=== PATIENT | female | born 1940 | race Two or more races ===

== ENCOUNTER 2023-04-15 11:36 | Inpatient (IN) | payer MEDICARE ==
[~2023-04-15] VITALS: Ht 157.5 cm; Wt 78.0 kg
[2023-04-15] VITALS (20 sets, daily range): BP systolic 44–158; BP diastolic 35–93; TEMP 98.3–98.7; O2SAT 94–100
[2023-04-15] MEDS ORDERED: CLON0.5T4 PO (12:11)
[2023-04-15] MEDS ORDERED: LIDO120C7 TP (12:11)
[2023-04-15] MEDS ORDERED: LEVO125T8 PO (12:11)
[2023-04-15 12:56] LABS: BASOPHILS % (AUTO) 0.4 % (0.0-2.0); EOSINOPHILS # (AUTO) 0.3 K/uL (0.0-0.7); EOSINOPHILS % (AUTO) 2.3 % (0.0-6.0); HEMATOCRIT 34 % (33-45); HEMOGLOBIN 11.1 g/dL (11.5-14.8); LYMPHOCYTES # (AUTO) 5.6 K/uL (0.8-4.8); LYMPHOCYTES % (AUTO) 43.5 % (20.0-44.0); MEAN CORPUSCULAR HEMOGLOBIN 30 PG (26.0-33.0); MEAN CORPUSCULAR HGB CONC 32 g/dl (31.0-36.0); MEAN CORPUSCULAR VOLUME 91 fL (82-100); MONOCYTES # (AUTO) 0.7 K/uL (0.1-1.30); MONOCYTES % (AUTO) 5.5 % (2.0-12.0); NEUTROPHILS # (AUTO) 6.3 K/uL (1.8-8.9); NEUTROPHILS % (AUTO) 48.3 % (43.0-81.0); PLATELET COUNT (AUTO) 223 K/uL (150-450); RED BLOOD CELL COUNT(AUTO) 3.75 MIL/uL (4.0-5.2); RED CELL DISTRIBUTION WIDTH 15.7 % (11.5-15.0); WHITE BLOOD COUNT (AUTO) 12.9 K/uL (4.3-11.0)
[2023-04-15 13:03] LABS: CALCIUM, SERUM 8.6 mg/dL (8.5-10.1); CARBON DIOXIDE 19 mmol/L (21-32); CHLORIDE 108 mmol/L (98-107); CREATININE 6.7 mg/dL (0.6-1.3); GLUCOSE 83 mg/dL (74-106); SODIUM SERUM 138 mmol/L (136-145); UREA NITROGEN, BLOOD 54 mg/dL (7-18)
[2023-04-15 13:08] LABS: POTASSIUM 8.4 mmol/L (3.5-5.1)
[2023-04-15 13:17] LABS: INR 0.99 (0.91-1.10); PARTIAL THROMBOPLASTIN TIME 24.2 SEC (24.3-34.3); PROTHROMBIN TIME 10.5 SECS (9.2-11.1)
[2023-04-15] MEDS ORDERED: ALBUTEROL FS 2.5 MG/3 ML VIAL.NEB ONE (13:25)
[2023-04-15] MEDS ORDERED: SODIUM BICARBONATE SYR 50 MEQ/50 ML DISP.SYRIN IV ONE (13:30)
[2023-04-15] MEDS ORDERED: ALBUTEROL FS 2.5 MG/3 ML VIAL.NEB NEB ONE (13:30)
[2023-04-15] MEDS ORDERED: SODIUM POLYSTYRENE SULFONATE 15 G/60 ML BOTTLE PO ONE (13:30)
[2023-04-15] MEDS ORDERED: INSULIN REGULAR, HUMAN 100 UNIT/ML 10 ML VIAL IV ONE (13:30)
[2023-04-15] MEDS ORDERED: CALCIUM CHLORIDE 1,000 MG/10 ML DISP.SYRIN IV ONE (13:30)
[2023-04-15] MEDS ORDERED: DEXTROSE 50%-WATER 50 ML DISP.SYRIN IV ONE (13:30)
[2023-04-15] MEDS ORDERED: CALCIUM CHLORIDE 1,000 MG/10 ML DISP.SYRIN ONE (13:40)
[2023-04-15] MEDS ORDERED: SODIUM POLYSTYRENE SULFONATE 15 G/60 ML BOTTLE ONE (13:41)
[2023-04-15] MEDS ORDERED: INSULIN REGULAR, HUMAN 100 UNIT/ML 10 ML VIAL ONE (13:42)
[2023-04-15] MEDS ORDERED: DEXTROSE 50%-WATER 50 ML DISP.SYRIN ONE (13:42)
[2023-04-15] MEDS ORDERED: SODIUM BICARBONATE SYR 50 MEQ/50 ML DISP.SYRIN ONE (13:42)
[2023-04-15] MEDS ORDERED: ONDANSETRON HCL/PF 4 MG/2 ML VIAL IVP PRN (14:00)
[2023-04-15] MEDS ORDERED: HEPARIN SODIUM, PORCINE 5000 UNITS/1 ML VIAL IV ONE (14:00)
[2023-04-15] MEDS ORDERED: MAG HYDROX/AL HYDROX/SIMETH 30 ML UDC PO PRN (14:00)
[2023-04-15] MEDS ORDERED: ZOLPIDEM TARTRATE 5 MG TABLET PO PRN (14:00)
[2023-04-15] MEDS ORDERED: Z GUARD REMEDY 4 OZ OINT TP PRN (14:00)
[2023-04-15] MEDS ORDERED: MAGNESIUM HYDROXIDE 30 ML UDC PO PRN (14:00)
[2023-04-15 15:55] LABS: CALCIUM, SERUM 9.7 mg/dL (8.5-10.1); CARBON DIOXIDE 20 mmol/L (21-32); CHLORIDE 108 mmol/L (98-107); CREATININE 6.4 mg/dL (0.6-1.3); GLUCOSE 246 mg/dL (74-106); SODIUM SERUM 137 mmol/L (136-145); UREA NITROGEN, BLOOD 52 mg/dL (7-18)
[2023-04-15 15:58] LABS: POTASSIUM 6.2 mmol/L (3.5-5.1)
[2023-04-16] VITALS (15 sets, daily range): BP systolic 108–136; BP diastolic 46–69; TEMP 98–99; O2SAT 92–98
[2023-04-16] MEDS: ACETAMINOPHEN 325 MG TABLET PO PRN (02:18)
[2023-04-16 04:18] LABS: BASOPHILS # (AUTO) 0.1 K/uL (0.0-0.2); BASOPHILS % (AUTO) 0.5 % (0.0-2.0); EOSINOPHILS # (AUTO) 0.2 K/uL (0.0-0.7); EOSINOPHILS % (AUTO) 1.2 % (0.0-6.0); HEMATOCRIT 33 % (33-45); HEMOGLOBIN 10.9 g/dL (11.5-14.8); LYMPHOCYTES # (AUTO) 4.8 K/uL (0.8-4.8); LYMPHOCYTES % (AUTO) 34.7 % (20.0-44.0); MEAN CORPUSCULAR HEMOGLOBIN 30 PG (26.0-33.0); MEAN CORPUSCULAR HGB CONC 33 g/dl (31.0-36.0); MEAN CORPUSCULAR VOLUME 91 fL (82-100); MONOCYTES # (AUTO) 0.8 K/uL (0.1-1.30); MONOCYTES % (AUTO) 5.6 % (2.0-12.0); NEUTROPHILS # (AUTO) 8.1 K/uL (1.8-8.9); PLATELET COUNT (AUTO) 182 K/uL (150-450); RED BLOOD CELL COUNT(AUTO) 3.58 MIL/uL (4.0-5.2); RED CELL DISTRIBUTION WIDTH 15.4 % (11.5-15.0); WHITE BLOOD COUNT (AUTO) 13.9 K/uL (4.3-11.0)
[2023-04-16 04:29] LABS: CALCIUM, SERUM 8.6 mg/dL (8.5-10.1); CARBON DIOXIDE 24 mmol/L (21-32); CHLORIDE 100 mmol/L (98-107); CREATININE 3.7 mg/dL (0.6-1.3); GLUCOSE 106 mg/dL (74-106); MAGNESIUM 1.8 mg/dL (1.8-2.4); PHOSPHORUS 4.3 mg/dL (2.5-4.9); POTASSIUM 5.6 mmol/L (3.5-5.1); SODIUM SERUM 132 mmol/L (136-145); UREA NITROGEN, BLOOD 20 mg/dL (7-18)
[2023-04-16] MEDS: LEVOTHYROXINE SODIUM 125 MCG TABLET PO SCH (07:37)
[2023-04-17] VITALS: BP 133/63; TEMP 98.6; O2SAT 93
[2023-04-17 04:00] VITALS: BP 113/54; TEMP 98.5; O2SAT 99
[2023-04-17 07:00] LABS: BASOPHILS # (AUTO) 0.1 K/uL (0.0-0.2); BASOPHILS % (AUTO) 0.9 % (0.0-2.0); EOSINOPHILS # (AUTO) 0.3 K/uL (0.0-0.7); EOSINOPHILS % (AUTO) 2.6 % (0.0-6.0); HEMATOCRIT 33 % (33-45); HEMOGLOBIN 11.2 g/dL (11.5-14.8); LYMPHOCYTES # (AUTO) 4.2 K/uL (0.8-4.8); LYMPHOCYTES % (AUTO) 38.3 % (20.0-44.0); MEAN CORPUSCULAR HEMOGLOBIN 31 PG (26.0-33.0); MEAN CORPUSCULAR HGB CONC 34 g/dl (31.0-36.0); MEAN CORPUSCULAR VOLUME 90 fL (82-100); MONOCYTES # (AUTO) 0.8 K/uL (0.1-1.30); MONOCYTES % (AUTO) 6.9 % (2.0-12.0); NEUTROPHILS # (AUTO) 5.6 K/uL (1.8-8.9); NEUTROPHILS % (AUTO) 51.3 % (43.0-81.0); PLATELET COUNT (AUTO) 160 K/uL (150-450); RED BLOOD CELL COUNT(AUTO) 3.65 MIL/uL (4.0-5.2); RED CELL DISTRIBUTION WIDTH 15.3 % (11.5-15.0)
[2023-04-17] MEDS: LEVOTHYROXINE SODIUM 125 MCG TABLET PO SCH (07:30)
[2023-04-17 07:33] LABS: CALCIUM, SERUM 8.3 mg/dL (8.5-10.1); CARBON DIOXIDE 25 mmol/L (21-32); CHLORIDE 103 mmol/L (98-107); CREATININE 4.9 mg/dL (0.6-1.3); GLUCOSE 107 mg/dL (74-106); MAGNESIUM 2.2 mg/dL (1.8-2.4); PHOSPHORUS 5.9 mg/dL (2.5-4.9); POTASSIUM 5.3 mmol/L (3.5-5.1); SODIUM SERUM 139 mmol/L (136-145); UREA NITROGEN, BLOOD 26 mg/dL (7-18)
[2023-04-17 08:00] VITALS: BP 128/41; TEMP 98.4; O2SAT 97
[2023-04-17] MEDS ORDERED: IOHEXOL 50 ML IV ONE (10:16)
[2023-04-17] MEDS ORDERED: HEPARIN SODIUM, PORCINE 1,000 UNIT/ML VIAL ONE (10:16)
[2023-04-17] MEDS ORDERED: LIDOCAINE HCL/MPF 1% 30 ML VIAL IJ ONE ×2 (10:16→12:31)
[2023-04-17] MEDS ORDERED: CELLULOSE,OXIDIZED 1 EACH EACH MC ONE (10:16)
[2023-04-17] MEDS ORDERED: CELLULOSE,OXIDIZED 1 EA PACK MC ONE (10:16)
[2023-04-17 12:00] VITALS: BP 112/62; TEMP 98.4; O2SAT 94
[2023-04-17] MEDS ORDERED: KETAMINE HCL(200MG/20ML) 10 MG/ML VIAL ONE (12:39)
[2023-04-17] MEDS ORDERED: FENTANYL PF 100MCG/2ML AMPUL ONE (12:39)
[2023-04-17] MEDS ORDERED: HEPARIN SODIUM, PORCINE 5000 UNITS/1 ML VIAL ONE (13:10)
[2023-04-17] MEDS ORDERED: LABETALOL HCL IV 100MG VIAL ONE (13:13)
[2023-04-17 16:00] VITALS: BP 141/57; TEMP 97.7; O2SAT 96
[2023-04-17 20:00] VITALS: BP 142/84; TEMP 98.8; O2SAT 96
[2023-04-17] MEDS: ANCEF 1 GM/50 ML D5W IV SCH ×2 (20:54)
[2023-04-18] VITALS: BP 112/65; TEMP 98.2; O2SAT 96
[2023-04-18] MEDS: ACETAMINOPHEN 325 MG TABLET PO PRN ×2 (03:11→15:42)
[2023-04-18 04:00] VITALS: BP 103/90; TEMP 98; O2SAT 98
[2023-04-18] MEDS: ANCEF 1 GM/50 ML D5W IV SCH ×2 (04:46)
[2023-04-18 06:41] LABS: BASOPHILS % (AUTO) 0.4 % (0.0-2.0); EOSINOPHILS # (AUTO) 0.3 K/uL (0.0-0.7); HEMATOCRIT 30 % (33-45); HEMOGLOBIN 10.1 g/dL (11.5-14.8); LYMPHOCYTES # (AUTO) 4.6 K/uL (0.8-4.8); LYMPHOCYTES % (AUTO) 35.4 % (20.0-44.0); MEAN CORPUSCULAR HEMOGLOBIN 30 PG (26.0-33.0); MEAN CORPUSCULAR HGB CONC 33 g/dl (31.0-36.0); MEAN CORPUSCULAR VOLUME 91 fL (82-100); MONOCYTES # (AUTO) 0.9 K/uL (0.1-1.30); MONOCYTES % (AUTO) 6.5 % (2.0-12.0); NEUTROPHILS # (AUTO) 7.3 K/uL (1.8-8.9); NEUTROPHILS % (AUTO) 55.7 % (43.0-81.0); PLATELET COUNT (AUTO) 155 K/uL (150-450); RED BLOOD CELL COUNT(AUTO) 3.32 MIL/uL (4.0-5.2); RED CELL DISTRIBUTION WIDTH 15.7 % (11.5-15.0)
[2023-04-18 07:33] LABS: CALCIUM, SERUM 7.6 mg/dL (8.5-10.1); CARBON DIOXIDE 22 mmol/L (21-32); CHLORIDE 101 mmol/L (98-107); CREATININE 6.5 mg/dL (0.6-1.3); GLUCOSE 205 mg/dL (74-106); PHOSPHORUS 6.8 mg/dL (2.5-4.9); POTASSIUM 5.5 mmol/L (3.5-5.1); SODIUM SERUM 137 mmol/L (136-145); UREA NITROGEN, BLOOD 37 mg/dL (7-18)
[2023-04-18] MEDS: LEVOTHYROXINE SODIUM 125 MCG TABLET PO SCH (07:59)
[2023-04-18 08:00] VITALS: BP 136/58; TEMP 98.4; O2SAT 95
[2023-04-18 12:00] VITALS: BP 138/52; TEMP 98.4; O2SAT 97
[2023-04-18 16:00] VITALS: BP 128/54; TEMP 98.4; O2SAT 96
[2023-04-18 20:00] VITALS: BP 125/46; TEMP 98.3; O2SAT 96
[2023-04-19] VITALS: BP 130/35; TEMP 98.3; O2SAT 99
[2023-04-19 04:00] VITALS: BP 118/52; TEMP 98.2; O2SAT 99
[2023-04-19 08:00] VITALS: BP 136/53; TEMP 98.1; O2SAT 98
[2023-04-19] MEDS: LEVOTHYROXINE SODIUM 125 MCG TABLET PO SCH (08:06)
[2023-04-19 11:33] LABS: BASOPHILS # (AUTO) 0.1 K/uL (0.0-0.2); BASOPHILS % (AUTO) 0.5 % (0.0-2.0); EOSINOPHILS # (AUTO) 0.4 K/uL (0.0-0.7); EOSINOPHILS % (AUTO) 3.6 % (0.0-6.0); HEMATOCRIT 30 % (33-45); HEMOGLOBIN 10.1 g/dL (11.5-14.8); LYMPHOCYTES # (AUTO) 4.4 K/uL (0.8-4.8); LYMPHOCYTES % (AUTO) 38.2 % (20.0-44.0); MEAN CORPUSCULAR HEMOGLOBIN 31 PG (26.0-33.0); MEAN CORPUSCULAR HGB CONC 33 g/dl (31.0-36.0); MEAN CORPUSCULAR VOLUME 92 fL (82-100); MONOCYTES # (AUTO) 0.6 K/uL (0.1-1.30); MONOCYTES % (AUTO) 5.5 % (2.0-12.0); NEUTROPHILS % (AUTO) 52.2 % (43.0-81.0); PLATELET COUNT (AUTO) 134 K/uL (150-450); RED CELL DISTRIBUTION WIDTH 15.7 % (11.5-15.0); WHITE BLOOD COUNT (AUTO) 11.4 K/uL (4.3-11.0)
[2023-04-19 11:36] LABS: CALCIUM, SERUM 7.8 mg/dL (8.5-10.1); CARBON DIOXIDE 20 mmol/L (21-32); CHLORIDE 105 mmol/L (98-107); CREATININE 6.6 mg/dL (0.6-1.3); GLUCOSE 154 mg/dL (74-106); POTASSIUM 4.7 mmol/L (3.5-5.1); SODIUM SERUM 137 mmol/L (136-145); UREA NITROGEN, BLOOD 45 mg/dL (7-18)
[2023-04-19 11:41] LABS: ALANINE AMINOTRANSFERASE < 6 U/L (12-78); ALBUMIN 3.1 g/dL (3.4-5.0); ALKALINE PHOSPHATASE 118 U/L (46-116); ASPARTATE AMINOTRANSFERASE 11 U/L (15-37); BILIRUBIN,TOTAL 0.3 mg/dL (0.2-1.0); TOTAL PROTEIN, SERUM 6.7 g/dL (6.4-8.2)
[2023-04-19 12:00] VITALS: BP 126/53; TEMP 98.1; O2SAT 98
[2023-04-19] MEDS ORDERED: METOCLOPRAMIDE HCL 10 MG/2 ML VIAL IV SCH (12:00)
[2023-04-19] MEDS ORDERED: LIDOCAINE HCL/MPF 1% 30 ML VIAL IJ ONE (14:30)
[2023-04-19] MEDS ORDERED: IODIXANOL 150 ML IV ONE (14:30)
[2023-04-19 16:15] VITALS: BP 138/52; TEMP 98.1; O2SAT 96
[2023-04-19] MEDS ORDERED: CLOPIDOGREL BISULFATE 300 MG TABLET PO ONE (17:00)
[2023-04-19] MEDS: ASPIRIN EC 81 MG TABLET.DR PO SCH (17:18)
[2023-04-19 20:00] VITALS: BP 130/53; TEMP 97.9; O2SAT 95
[2023-04-20] VITALS: BP 121/53; TEMP 97.9; O2SAT 97
[2023-04-20 06:00] VITALS: BP 122/50; TEMP 98.2; O2SAT 96
[2023-04-20 08:00] VITALS: BP 132/55; TEMP 97.9; O2SAT 96
[2023-04-20] MEDS: ASPIRIN EC 81 MG TABLET.DR PO SCH (08:40)
[2023-04-20] MEDS: LEVOTHYROXINE SODIUM 125 MCG TABLET PO SCH (08:41)
[2023-04-20] MEDS ORDERED: ASPI-1420 PO (08:58)
[2023-04-20] MEDS ORDERED: CLOP75TA15 PO (08:58)
[2023-04-20] MEDS ORDERED: CLOPIDOGREL BISULFATE 75 MG TABLET PO SCH (09:00)
[2023-04-20 12:00] VITALS: BP 129/51; TEMP 98; O2SAT 98
[2023-04-20] MEDS ORDERED: POLYETHYLENE GLYCOL 3350 17 GM POWD.PACK PO ONE (13:00)
[2023-04-20] MEDS ORDERED: DOCUSATE SODIUM 100 MG CAPSULE PO ONE (13:00)
[2023-04-20] MEDS ORDERED: LACTULOSE 10 G/15 ML UDC (PYXIS) PO ONE (13:00)
[2023-04-20 16:00] VITALS: BP 124/54; TEMP 97.9; O2SAT 99
[2023-04-20] MEDS ORDERED: ONDANSETRON HCL 4 MG/5 ML SOLUTION PO ONE (18:30)
[2023-04-20] MEDS ORDERED: ONDANSETRON HCL/PF 4 MG/2 ML VIAL IV PRN (19:00)
[2023-04-20 20:00] VITALS: BP 120/59; TEMP 97.8; O2SAT 99
== END 2023-04-20 21:06 | disposition home health service (06) | DRG 252 ==
LOC: ER 11:36 → ICU 14:49 → TELE-TD 04-16 11:40 → ICU 04-17 13:29 → TELE1 04-17 13:30 → MEDSG1 04-20 09:39
PROVIDERS: ADMIT Nurse Practitioner Acute Care; ATTEND Internal Medicine
PROC: 5A1D70Z Performance of Urinary Filtration, Intermittent, Less than 6 Hours Per Day (ICD-10-PCS; principal; 2023-04-15)
PROC: 06HY33Z Insertion of Infusion Device into Lower Vein, Percutaneous Approach (ICD-10-PCS; 2023-04-15)
PROC: 03CY0ZZ Extirpation of Matter from Upper Artery, Open Approach (ICD-10-PCS; 2023-04-17)
PROC: 05783ZZ Dilation of Left Axillary Vein, Percutaneous Approach (ICD-10-PCS; 2023-04-17)
PROC: B51WYZZ Fluoroscopy of Dialysis Shunt/Fistula using Other Contrast (ICD-10-PCS; 2023-04-17)
PROC: 05WY0JZ Revision of Synthetic Substitute in Upper Vein, Open Approach (ICD-10-PCS; 2023-04-17)
PROC: 057Y3ZZ Dilation of Upper Vein, Percutaneous Approach (ICD-10-PCS; 2023-04-17)
PROC: 05783DZ Dilation of Left Axillary Vein with Intraluminal Device, Percutaneous Approach (ICD-10-PCS; 2023-04-19)
PROC: 05WY3JZ Revision of Synthetic Substitute in Upper Vein, Percutaneous Approach (ICD-10-PCS; 2023-04-19)
PROC: B51WYZZ Fluoroscopy of Dialysis Shunt/Fistula using Other Contrast (ICD-10-PCS; 2023-04-19)
DX: T82.868A Thrombosis due to vascular prosthetic devices, implants and grafts, initial encounter (principal); N18.6 End stage renal disease; I12.0 Hypertensive chronic kidney disease with stage 5 chronic kidney disease or end stage renal disease; E87.20 Acidosis, unspecified; E87.5 Hyperkalemia; E11.22 Type 2 diabetes mellitus with diabetic chronic kidney disease; Y83.8 Other surgical procedures as the cause of abnormal reaction of the patient, or of later complication, without mention of misadventure at the time of the procedure; D63.1 Anemia in chronic kidney disease; D72.829 Elevated white blood cell count, unspecified; E03.9 Hypothyroidism, unspecified; Z79.82 Long term (current) use of aspirin; Y92.009 Unspecified place in unspecified non-institutional (private) residence as the place of occurrence of the external cause; M89.8X9 Other specified disorders of bone, unspecified site; Z99.2 Dependence on renal dialysis
CPT/HCPCS: 36415; 71045-TC; 73060-TC; 80048-TC; 80053-TC; 82962-TC; 83735-TC; 84100-TC; 84132-TC; 85025-TC; 85730-TC; 86850-TC; 90935-TC; 92526; 92611-TC; 94799-TC; A6209; C1725; C1757; C1769; C1874; C1887; G0378; J0690; J1100; J1644; J1815; J2405; J2704; J3010; J3490; J7030; J7050; J7060; Q0162; Q9967

== ENCOUNTER 2024-08-12 08:52 | Day surgery (SDC) | payer MEDICARE, BC ==
[~2024-08-12 08:52] MED LIST: ASPI-1420 PO; CLON0.5T4 PO; CLOP75TA15 PO; LEVO125T8 PO; LIDO120C7 TP
[2024-08-12] MEDS ORDERED: CELLULOSE,OXIDIZED 1 EA PACK MC ONE (09:01)
[2024-08-12] MEDS ORDERED: HEMOSTATIC MATRIX 8 ML 1 EACH PAD MC ONE (09:01)
[2024-08-12] MEDS ORDERED: ANESTHESIA TRAY IN PYXIS 1 EA TRAY MC ONE (09:01)
[2024-08-12] MEDS ORDERED: LIDOCAINE HCL/MPF 1% 30 ML VIAL IJ ONE (09:02)
[2024-08-12] MEDS ORDERED: CELLULOSE,OXIDIZED 1 EACH EACH MC ONE (09:02)
[2024-08-12] MEDS ORDERED: ROPIVACAINE HCL 0.5% 5 MG/ML 30ML VIAL ONE (09:02)
[2024-08-12] MEDS ORDERED: CELLULOSE,OXIDIZED 1 PKT EACH MC ONE (09:02)
[2024-08-12 09:37] LABS: BASOPHILS % (AUTO) 0.3 % (0.0-2.0); EOSINOPHILS # (AUTO) 0.3 K/uL (0.0-0.7); EOSINOPHILS % (AUTO) 2.2 % (0.0-6.0); HEMATOCRIT 32 % (33-45); HEMOGLOBIN 10.6 g/dL (11.5-14.8); LYMPHOCYTES # (AUTO) 5.2 K/uL (0.8-4.8); MEAN CORPUSCULAR HEMOGLOBIN 30 PG (26.0-33.0); MEAN CORPUSCULAR HGB CONC 33 g/dl (31.0-36.0); MEAN CORPUSCULAR VOLUME 91 fL (82-100); MONOCYTES # (AUTO) 0.7 K/uL (0.1-1.30); MONOCYTES % (AUTO) 5.9 % (2.0-12.0); NEUTROPHILS # (AUTO) 6.5 K/uL (1.8-8.9); NEUTROPHILS % (AUTO) 50.6 % (43.0-81.0); PLATELET COUNT (AUTO) 165 K/uL (150-450); RED BLOOD CELL COUNT(AUTO) 3.54 MIL/uL (4.0-5.2); RED CELL DISTRIBUTION WIDTH 16.1 % (11.5-15.0); WHITE BLOOD COUNT (AUTO) 12.8 K/uL (4.3-11.0)
[2024-08-12 09:43] LABS: CALCIUM, SERUM 8.4 mg/dL (8.5-10.1); POTASSIUM 5.2 mmol/L (3.5-5.1)
[2024-08-12 09:49] LABS: ALBUMIN 3.7 g/dL (3.4-5.0); BILIRUBIN,TOTAL 0.5 mg/dL (0.2-1.0); TOTAL PROTEIN, SERUM 7.1 g/dL (6.4-8.2)
[2024-08-12 10:04] LABS: INR 0.98 (0.91-1.10); PROTHROMBIN TIME 10.4 SECS (9.2-11.1)
[2024-08-12 10:06] LABS: PARTIAL THROMBOPLASTIN TIME 121.1 SEC (24.3-34.3)
[2024-08-12] MEDS ORDERED: FENTANYL PF 100MCG/2ML AMPUL ONE (10:07)
[2024-08-12] MEDS ORDERED: BUPIVACAINE 0.25% 75 MG/30 ML VIAL ONE (10:08)
[2024-08-12] MEDS ORDERED: LIDOCAINE 2% 50 ML MDV IJ ONE (10:08)
[2024-08-12] MEDS ORDERED: MIDAZOLAM HCL 2 MG/2ML VIAL ONE (10:08)
[2024-08-12] MEDS ORDERED: FAMOTIDINE/PF INJ 20 MG/2 ML VIAL IV ONE (10:09)
== END 2024-08-12 11:50 | disposition home or self-care (01) ==
LOC: DS 08:52
PROVIDERS: ATTEND Surgery Vascular Surgery
DX: I12.0 Hypertensive chronic kidney disease with stage 5 chronic kidney disease or end stage renal disease (principal); Z53.8 Procedure and treatment not carried out for other reasons; N18.6 End stage renal disease; E11.22 Type 2 diabetes mellitus with diabetic chronic kidney disease; E03.9 Hypothyroidism, unspecified; Z79.02 Long term (current) use of antithrombotics/antiplatelets; Z79.82 Long term (current) use of aspirin; Z79.890 Hormone replacement therapy; Z99.2 Dependence on renal dialysis; Z79.899 Other long term (current) drug therapy; Z98.890 Other specified postprocedural states; Z86.2 Personal history of diseases of the blood and blood-forming organs and certain disorders involving the immune mechanism
CPT/HCPCS: 71045; 85025; 85610; 85730; 36415; 80053; J3490 ×3; J1308; J1644; J2250; J2795; J3010

== ENCOUNTER 2024-08-14 13:07 | Inpatient (IN) | payer MEDICARE, BC ==
[~2024-08-14] VITALS: Ht 160 cm; Wt 76.4 kg
[2024-08-14 13:36] LABS: BASOPHILS # (AUTO) 0.2 K/uL (0.0-0.2); BASOPHILS % (AUTO) 0.8 % (0.0-2.0); EOSINOPHILS # (AUTO) 0.3 K/uL (0.0-0.7); EOSINOPHILS % (AUTO) 1.7 % (0.0-6.0); HEMATOCRIT 30 % (33-45); HEMOGLOBIN 9.8 g/dL (11.5-14.8); LYMPHOCYTES # (AUTO) 8.9 K/uL (0.8-4.8); LYMPHOCYTES % (AUTO) 47.1 % (20.0-44.0); MEAN CORPUSCULAR HEMOGLOBIN 31 PG (26.0-33.0); MEAN CORPUSCULAR HGB CONC 33 g/dl (31.0-36.0); MEAN CORPUSCULAR VOLUME 92 fL (82-100); MONOCYTES # (AUTO) 0.8 K/uL (0.1-1.30); MONOCYTES % (AUTO) 4.3 % (2.0-12.0); NEUTROPHILS # (AUTO) 8.7 K/uL (1.8-8.9); NEUTROPHILS % (AUTO) 46.1 % (43.0-81.0); PLATELET COUNT (AUTO) 183 K/uL (150-450); RED BLOOD CELL COUNT(AUTO) 3.21 MIL/uL (4.0-5.2); RED CELL DISTRIBUTION WIDTH 16.8 % (11.5-15.0); WHITE BLOOD COUNT (AUTO) 18.8 K/uL (4.3-11.0)
[2024-08-14 13:43] LABS: CALCIUM, SERUM 7.9 mg/dL (8.5-10.1); CARBON DIOXIDE 24 mmol/L (21-32); CHLORIDE 108 mmol/L (98-107); GLUCOSE 162 mg/dL (74-106); SODIUM SERUM 141 mmol/L (136-145); UREA NITROGEN, BLOOD 64 mg/dL (7-18)
[2024-08-14 13:49] LABS: CREATININE 7.5 mg/dL (0.6-1.3)
[2024-08-14 13:53] LABS: INR 0.93 (0.91-1.10); PROTHROMBIN TIME 9.6 SECS (9.2-11.1)
[2024-08-14] MEDS: LIDOCAINE 5% (PATCH) 1 EA PATCH TP SCH (14:30)
[2024-08-14] MEDS ORDERED: DEXTROSE 50%-WATER 50 ML DISP.SYRIN ONE (14:31)
[2024-08-14] MEDS ORDERED: CALCIUM CHLORIDE 1,000 MG/10 ML DISP.SYRIN ONE (14:31)
[2024-08-14] MEDS ORDERED: FUROSEMIDE 20 MG/2 ML VIAL ONE (14:31)
[2024-08-14] MEDS ORDERED: INSULIN REGULAR, HUMAN 100 UNIT/ML 10 ML VIAL ONE (14:31)
[2024-08-14] MEDS ORDERED: AMLO10TA4 PO (14:39)
[2024-08-14] MEDS ORDERED: LOSA25TA27 PO (14:39)
[2024-08-14] MEDS: FUROSEMIDE 40 MG/4 ML VIAL IV ONE (14:56)
[2024-08-14] MEDS: DEXTROSE 50%-WATER 50 ML DISP.SYRIN IV ONE (14:57)
[2024-08-14] MEDS: INSULIN REGULAR, HUMAN 100 UNIT/ML 10 ML VIAL IV ONE (14:59)
[2024-08-14] MEDS: CALCIUM CHLORIDE 1,000 MG/10 ML DISP.SYRIN IV ONE (14:59)
[2024-08-14] MEDS ORDERED: ONDANSETRON HCL/PF 4 MG/2 ML VIAL IVP PRN (15:00)
[2024-08-14] MEDS ORDERED: MAGNESIUM HYDROXIDE 30 ML UDC PO PRN (15:00)
[2024-08-14] MEDS ORDERED: MAG HYDROX/AL HYDROX/SIMETH 30 ML UDC PO PRN (15:00)
[2024-08-14] MEDS ORDERED: Z GUARD REMEDY 4 OZ OINT TP PRN (15:00)
[2024-08-14] MEDS ORDERED: LIDOCAINE 5% (PATCH) 1 EA PATCH TP ONE (15:10)
[2024-08-14] MEDS: SODIUM BICARBONATE SYR 50 MEQ/50 ML DISP.SYRIN IV ONE (15:22)
[2024-08-14] MEDS ORDERED: SODIUM POLYSTYRENE SULFONATE 15 G/60 ML BOTTLE PO ONE (15:30)
[2024-08-14] MEDS ORDERED: SODIUM POLYSTYRENE SULFONATE 15 G/60 ML BOTTLE ONE (16:04)
[2024-08-14] MEDS: SODIUM POLYSTYRENE SULFONATE 15 G/60 ML BOTTLE PO ONE ×2 (16:07→16:11)
[2024-08-14 17:28] VITALS: BP 130/55; TEMP 98.2; O2SAT 95
[2024-08-14 17:53] LABS: CALCIUM, SERUM 9.2 mg/dL (8.5-10.1); CREATININE 7.4 mg/dL (0.6-1.3); POTASSIUM 5.9 mmol/L (3.5-5.1)
[2024-08-14] MEDS: ALTEPLASE CATHFLO 2 MG/VIAL XX ONE (18:45)
[2024-08-14 20:00] VITALS: BP 150/60; TEMP 97.9; O2SAT 97
[2024-08-15] VITALS: BP 131/55; TEMP 97.9; O2SAT 97
[2024-08-15 01:33] LABS: CALCIUM, SERUM 7.9 mg/dL (8.5-10.1); CREATININE 6.8 mg/dL (0.6-1.3); POTASSIUM 5.5 mmol/L (3.5-5.1)
[2024-08-15 04:00] VITALS: BP 107/58; TEMP 97.5; O2SAT 96
[2024-08-15] MEDS: SODIUM ZIRCONIUM CYCLOSILICATE 10 GM POWD.PACK ONE (05:33)
[2024-08-15] MEDS: SODIUM ZIRCONIUM CYCLOSILICATE 10 GM POWD.PACK PO SCH (05:34)
[2024-08-15 07:16] LABS: BASOPHILS % (AUTO) 0.3 % (0.0-2.0); EOSINOPHILS # (AUTO) 0.3 K/uL (0.0-0.7); EOSINOPHILS % (AUTO) 2.6 % (0.0-6.0); HEMATOCRIT 28 % (33-45); HEMOGLOBIN 9.2 g/dL (11.5-14.8); LYMPHOCYTES # (AUTO) 5.6 K/uL (0.8-4.8); MEAN CORPUSCULAR HEMOGLOBIN 30 PG (26.0-33.0); MEAN CORPUSCULAR HGB CONC 33 g/dl (31.0-36.0); MEAN CORPUSCULAR VOLUME 92 fL (82-100); MONOCYTES # (AUTO) 0.7 K/uL (0.1-1.30); MONOCYTES % (AUTO) 5.2 % (2.0-12.0); NEUTROPHILS # (AUTO) 6.4 K/uL (1.8-8.9); NEUTROPHILS % (AUTO) 48.9 % (43.0-81.0); PLATELET COUNT (AUTO) 162 K/uL (150-450); RED BLOOD CELL COUNT(AUTO) 3.05 MIL/uL (4.0-5.2)
[2024-08-15 07:35] LABS: CALCIUM, SERUM 7.9 mg/dL (8.5-10.1); MAGNESIUM 1.9 mg/dL (1.8-2.4); PHOSPHORUS 5.1 mg/dL (2.5-4.9)
[2024-08-15 08:00] VITALS: BP 124/50; TEMP 98.1; O2SAT 94
[2024-08-15 08:00] LABS: POTASSIUM 6.1 mmol/L (3.5-5.1)
[2024-08-15] MEDS: LEVOTHYROXINE SODIUM 125 MCG TABLET PO SCH (09:00)
[2024-08-15 12:10] VITALS: BP 142/54; TEMP 97.9; O2SAT 98
[2024-08-15] MEDS ORDERED: ANESTHESIA TRAY IN PYXIS 1 EA TRAY MC ONE (12:23)
[2024-08-15] MEDS ORDERED: LIDOCAINE 1% INJ 50 ML MDV IJ ONE (12:24)
[2024-08-15] MEDS ORDERED: HEPARIN SODIUM, PORCINE 1,000 UNIT/ML VIAL ONE (12:24)
[2024-08-15] MEDS ORDERED: BACITRACIN ZINC OINT (15 GM) 15 GM TUBE TP ONE (13:42)
[2024-08-15] MEDS: SODIUM ZIRCONIUM CYCLOSILICATE 10 GM POWD.PACK PO ONE (14:40)
[2024-08-15 16:10] VITALS: BP 126/55; TEMP 97.7; O2SAT 96
[2024-08-15 20:00] VITALS: BP 108/57; TEMP 98.1; O2SAT 95
[2024-08-15] MEDS: ANCEF 1 GM/50 ML D5W IV SCH (20:26)
[2024-08-16] VITALS: BP 121/51; TEMP 98.1; O2SAT 95
[2024-08-16] MEDS: ACETAMINOPHEN 325 MG TABLET PO PRN (00:14)
[2024-08-16 04:00] VITALS: BP 126/48; TEMP 98.1; O2SAT 97
[2024-08-16 08:05] VITALS: BP 102/55; TEMP 98.2; O2SAT 96
[2024-08-16 08:33] LABS: CALCIUM, SERUM 7.3 mg/dL (8.5-10.1); CREATININE 4.4 mg/dL (0.6-1.3); POTASSIUM 4.4 mmol/L (3.5-5.1)
[2024-08-16 09:39] LABS: BASOPHILS % (AUTO) 0.2 % (0.0-2.0); EOSINOPHILS # (AUTO) 0.3 K/uL (0.0-0.7); EOSINOPHILS % (AUTO) 2.4 % (0.0-6.0); HEMATOCRIT 31 % (33-45); HEMOGLOBIN 10.3 g/dL (11.5-14.8); LYMPHOCYTES # (AUTO) 5.2 K/uL (0.8-4.8); LYMPHOCYTES % (AUTO) 35.8 % (20.0-44.0); MEAN CORPUSCULAR HEMOGLOBIN 31 PG (26.0-33.0); MEAN CORPUSCULAR HGB CONC 34 g/dl (31.0-36.0); MEAN CORPUSCULAR VOLUME 90 fL (82-100); MONOCYTES # (AUTO) 0.7 K/uL (0.1-1.30); MONOCYTES % (AUTO) 4.9 % (2.0-12.0); NEUTROPHILS # (AUTO) 8.2 K/uL (1.8-8.9); NEUTROPHILS % (AUTO) 56.7 % (43.0-81.0); PLATELET COUNT (AUTO) 171 K/uL (150-450); RED BLOOD CELL COUNT(AUTO) 3.38 MIL/uL (4.0-5.2); RED CELL DISTRIBUTION WIDTH 15.5 % (11.5-15.0); WHITE BLOOD COUNT (AUTO) 14.5 K/uL (4.3-11.0)
[2024-08-16 12:09] VITALS: BP 120/51; TEMP 98.4; O2SAT 96
[2024-08-16 16:03] VITALS: BP 133/55; TEMP 98.4; O2SAT 96
[2024-08-16 20:00] VITALS: BP 112/56; TEMP 98.2; O2SAT 95
[2024-08-17] VITALS: BP 109/54; TEMP 98.1; O2SAT 96
[2024-08-17 04:00] VITALS: BP 130/67; TEMP 98.2; O2SAT 96
[2024-08-17 06:59] LABS: BASOPHILS % (AUTO) 0.3 % (0.0-2.0); EOSINOPHILS # (AUTO) 0.3 K/uL (0.0-0.7); EOSINOPHILS % (AUTO) 2.5 % (0.0-6.0); HEMATOCRIT 29 % (33-45); HEMOGLOBIN 9.9 g/dL (11.5-14.8); LYMPHOCYTES # (AUTO) 5.8 K/uL (0.8-4.8); MEAN CORPUSCULAR HEMOGLOBIN 30 PG (26.0-33.0); MEAN CORPUSCULAR HGB CONC 34 g/dl (31.0-36.0); MEAN CORPUSCULAR VOLUME 90 fL (82-100); MONOCYTES # (AUTO) 0.6 K/uL (0.1-1.30); MONOCYTES % (AUTO) 4.8 % (2.0-12.0); NEUTROPHILS # (AUTO) 6.6 K/uL (1.8-8.9); NEUTROPHILS % (AUTO) 49.4 % (43.0-81.0); PLATELET COUNT (AUTO) 156 K/uL (150-450); RED BLOOD CELL COUNT(AUTO) 3.26 MIL/uL (4.0-5.2); RED CELL DISTRIBUTION WIDTH 15.4 % (11.5-15.0); WHITE BLOOD COUNT (AUTO) 13.4 K/uL (4.3-11.0)
[2024-08-17 07:01] LABS: CALCIUM, SERUM 7.2 mg/dL (8.5-10.1); CREATININE 5.6 mg/dL (0.6-1.3); PHOSPHORUS 5.7 mg/dL (2.5-4.9); POTASSIUM 3.8 mmol/L (3.5-5.1)
[2024-08-17 08:00] VITALS: BP 139/59; TEMP 98.1; O2SAT 96
[2024-08-17 12:00] VITALS: BP 148/64; TEMP 98.2; O2SAT 97
[2024-08-17] MEDS ORDERED: ROPIVACAINE HCL 0.5% 5 MG/ML 30ML VIAL ONE (14:18)
[2024-08-17] MEDS ORDERED: LIDOCAINE HCL/MPF 1% 30 ML VIAL IJ ONE (14:18)
[2024-08-17] MEDS ORDERED: CELLULOSE,OXIDIZED 1 EA PACK MC ONE (14:18)
[2024-08-17] MEDS ORDERED: CELLULOSE,OXIDIZED 1 PKT EACH MC ONE (14:19)
[2024-08-17] MEDS ORDERED: CELLULOSE,OXIDIZED 1 EACH EACH MC ONE (14:19)
[2024-08-17 16:00] VITALS: BP 156/67; TEMP 97.5; O2SAT 97
[2024-08-17 20:00] VITALS: BP 155/59; TEMP 98.2; O2SAT 97
[2024-08-18] VITALS: BP 155/63; TEMP 98.6; O2SAT 96
[2024-08-18] MEDS ORDERED: WATER FOR INJECTION,STERILE 20 ML ONE (00:36)
[2024-08-18] MEDS: ALTEPLASE CATHFLO 2 MG/VIAL XX ONE (00:58)
[2024-08-18 01:07] LABS: HEPATITIS B CORE AB, TOTAL Negative (Negative); HEPATITIS B SURFACE AB (QUAL) Reactive (.)
[2024-08-18 04:00] VITALS: BP 157/63; TEMP 98.4; O2SAT 95
[2024-08-18 08:00] VITALS: BP 155/62; TEMP 97.5; O2SAT 100
[2024-08-18 12:00] VITALS: BP 155/62; TEMP 97.5; O2SAT 100
[2024-08-18 16:41] VITALS: BP 173/66; TEMP 97.5; O2SAT 100
[2024-08-18] MEDS: hydrALAZINE HCL 25 MG TABLET PO PRN (17:51)
[2024-08-18] MEDS ORDERED: hydrALAZINE HCL 25 MG TABLET PO SCH (18:00)
[2024-08-18 20:00] VITALS: BP 158/64; TEMP 98.1; O2SAT 97
[2024-08-18] MEDS: BLOOD SUGAR DIAGNOSTIC 1 EACH STRIP IN SCH (23:16)
[2024-08-19] VITALS: BP 171/67; TEMP 98; O2SAT 98
[2024-08-19 04:00] VITALS: BP 130/64; TEMP 98.1; O2SAT 97
[2024-08-19 07:02] LABS: BASOPHILS % (AUTO) 0.2 % (0.0-2.0); CALCIUM, SERUM 7.9 mg/dL (8.5-10.1); CREATININE 5.2 mg/dL (0.6-1.3); EOSINOPHILS # (AUTO) 0.3 K/uL (0.0-0.7); EOSINOPHILS % (AUTO) 1.9 % (0.0-6.0); HEMATOCRIT 29 % (33-45); HEMOGLOBIN 9.9 g/dL (11.5-14.8); LYMPHOCYTES # (AUTO) 5.6 K/uL (0.8-4.8); LYMPHOCYTES % (AUTO) 33.5 % (20.0-44.0); MEAN CORPUSCULAR HEMOGLOBIN 30 PG (26.0-33.0); MEAN CORPUSCULAR HGB CONC 34 g/dl (31.0-36.0); MEAN CORPUSCULAR VOLUME 90 fL (82-100); MONOCYTES # (AUTO) 0.9 K/uL (0.1-1.30); MONOCYTES % (AUTO) 5.1 % (2.0-12.0); NEUTROPHILS # (AUTO) 9.9 K/uL (1.8-8.9); NEUTROPHILS % (AUTO) 59.3 % (43.0-81.0); PLATELET COUNT (AUTO) 175 K/uL (150-450); RED BLOOD CELL COUNT(AUTO) 3.28 MIL/uL (4.0-5.2); RED CELL DISTRIBUTION WIDTH 15.9 % (11.5-15.0); WHITE BLOOD COUNT (AUTO) 16.7 K/uL (4.3-11.0)
[2024-08-19 08:00] VITALS: BP_SYST 152; BP_SYST 162; BP_DIAS 70; TEMP 98.2; O2SAT 98
[2024-08-19 12:00] VITALS: BP 152/70; TEMP 98.2; O2SAT 98
[2024-08-19 20:00] VITALS: BP 122/50; TEMP 98.1; O2SAT 98
[2024-08-19] MEDS: clonazePAM 0.5 MG TABLET PO SCH (23:45)
[2024-08-20] MEDS: ZOLPIDEM TARTRATE 5 MG TABLET PO PRN (02:02)
[2024-08-20 04:00] VITALS: BP 131/57; TEMP 97.7; O2SAT 96
[2024-08-20] MEDS ORDERED: clonazePAM 0.5 MG TABLET PO PRN (07:30)
[2024-08-20 07:32] LABS: BASOPHILS # (AUTO) 0.1 K/uL (0.0-0.2); BASOPHILS % (AUTO) 0.4 % (0.0-2.0); EOSINOPHILS # (AUTO) 0.5 K/uL (0.0-0.7); EOSINOPHILS % (AUTO) 2.7 % (0.0-6.0); HEMATOCRIT 30 % (33-45); HEMOGLOBIN 10.2 g/dL (11.5-14.8); LYMPHOCYTES % (AUTO) 37.6 % (20.0-44.0); MEAN CORPUSCULAR HEMOGLOBIN 31 PG (26.0-33.0); MEAN CORPUSCULAR HGB CONC 34 g/dl (31.0-36.0); MEAN CORPUSCULAR VOLUME 90 fL (82-100); MONOCYTES # (AUTO) 1.2 K/uL (0.1-1.30); MONOCYTES % (AUTO) 6.4 % (2.0-12.0); NEUTROPHILS # (AUTO) 9.8 K/uL (1.8-8.9); NEUTROPHILS % (AUTO) 52.9 % (43.0-81.0); PLATELET COUNT (AUTO) 189 K/uL (150-450); RED BLOOD CELL COUNT(AUTO) 3.33 MIL/uL (4.0-5.2); RED CELL DISTRIBUTION WIDTH 16.1 % (11.5-15.0); WHITE BLOOD COUNT (AUTO) 18.5 K/uL (4.3-11.0)
[2024-08-20 08:12] LABS: CALCIUM, SERUM 8.1 mg/dL (8.5-10.1); CREATININE 5.6 mg/dL (0.6-1.3); POTASSIUM 3.7 mmol/L (3.5-5.1)
[2024-08-21] MEDS ORDERED: ASPI-1169 PO (12:04)
[2024-08-21] MEDS ORDERED: CLOP75TA15 PO (12:04)
== END 2024-08-20 11:57 | disposition home or self-care (01) | DRG 674 ==
LOC: ER 13:11 → TELE1 15:27 → MEDSG1 08-18 10:47
PROVIDERS: ADMIT Nurse Practitioner Acute Care; ATTEND Internal Medicine
PROC: 06PYX3Z Removal of Infusion Device from Lower Vein, External Approach (ICD-10-PCS; 2024-08-15)
PROC: 06H033Z Insertion of Infusion Device into Inferior Vena Cava, Percutaneous Approach (ICD-10-PCS; 2024-08-15)
PROC: B519YZA Fluoroscopy of Inferior Vena Cava using Other Contrast, Guidance (ICD-10-PCS; 2024-08-15)
PROC: 5A1D70Z Performance of Urinary Filtration, Intermittent, Less than 6 Hours Per Day (ICD-10-PCS; principal; 2024-08-15 13:00)
PROC: 031C3ZF Bypass Left Radial Artery to Lower Arm Vein, Percutaneous Approach (ICD-10-PCS; 2024-08-17)
DX: T82.41XA Breakdown (mechanical) of vascular dialysis catheter, initial encounter (principal); C91.10 Chronic lymphocytic leukemia of B-cell type not having achieved remission; I12.0 Hypertensive chronic kidney disease with stage 5 chronic kidney disease or end stage renal disease; E87.1 Hypo-osmolality and hyponatremia; N18.6 End stage renal disease; E87.5 Hyperkalemia; E89.0 Postprocedural hypothyroidism; E11.22 Type 2 diabetes mellitus with diabetic chronic kidney disease; E66.9 Obesity, unspecified; E83.51 Hypocalcemia; Z79.4 Long term (current) use of insulin; Z99.2 Dependence on renal dialysis; Z90.710 Acquired absence of both cervix and uterus; M89.8X9 Other specified disorders of bone, unspecified site; E83.9 Disorder of mineral metabolism, unspecified; Z68.29 Body mass index [BMI] 29.0-29.9, adult; Y83.2 Surgical operation with anastomosis, bypass or graft as the cause of abnormal reaction of the patient, or of later complication, without mention of misadventure at the time of the procedure; D63.8 Anemia in other chronic diseases classified elsewhere; Z91.158 Patient's noncompliance with renal dialysis for other reason; Y92.531 Health care provider office as the place of occurrence of the external cause
CPT/HCPCS: 36415; 71045-TC; 74018; 80048-TC; 82962-TC; 83735-TC; 84100-TC; 85025-TC; 85730-TC; 86704; 86706; 86850-TC; 87040-TC; 87340; 90935-TC; A4223; C1750; C1769; G0378; J0690; J1644; J1815; J1938; J2704; J2795; J2997; J3490; J7030; J7060

== ENCOUNTER 2024-08-21 10:24 | Inpatient (IN) | payer MEDICARE, BC ==
[~2024-08-21] VITALS: Ht 160 cm; Wt 77.1 kg
[~2024-08-21 10:24] MED LIST changes: +AMLO10TA4 PO; -CLON0.5T4 PO; -LIDO120C7 TP; +LOSA25TA27 PO
[2024-08-21 10:43] VITALS: O2SAT 93
[2024-08-21 11:28] LABS: BASOPHILS # (AUTO) 0.1 K/uL (0.0-0.2); BASOPHILS % (AUTO) 0.3 % (0.0-2.0); EOSINOPHILS # (AUTO) 0.2 K/uL (0.0-0.7); EOSINOPHILS % (AUTO) 1.2 % (0.0-6.0); HEMATOCRIT 30 % (33-45); HEMOGLOBIN 10.1 g/dL (11.5-14.8); LYMPHOCYTES # (AUTO) 7.9 K/uL (0.8-4.8); LYMPHOCYTES % (AUTO) 41.1 % (20.0-44.0); MEAN CORPUSCULAR HEMOGLOBIN 31 PG (26.0-33.0); MEAN CORPUSCULAR HGB CONC 34 g/dl (31.0-36.0); MEAN CORPUSCULAR VOLUME 91 fL (82-100); MONOCYTES # (AUTO) 1.2 K/uL (0.1-1.30); MONOCYTES % (AUTO) 6.1 % (2.0-12.0); NEUTROPHILS # (AUTO) 9.9 K/uL (1.8-8.9); NEUTROPHILS % (AUTO) 51.3 % (43.0-81.0); PLATELET COUNT (AUTO) 189 K/uL (150-450); RED CELL DISTRIBUTION WIDTH 15.9 % (11.5-15.0); WHITE BLOOD COUNT (AUTO) 19.3 K/uL (4.3-11.0)
[2024-08-21 11:43] LABS: CALCIUM, SERUM 8.1 mg/dL (8.5-10.1); CREATININE 6.6 mg/dL (0.6-1.3); INR 0.97 (0.91-1.10); PARTIAL THROMBOPLASTIN TIME 31.2 SEC (24.3-34.3); PROTHROMBIN TIME 10.3 SECS (9.2-11.1)
[2024-08-21] MEDS ORDERED: CLOP75TA15 PO (12:04)
[2024-08-21] MEDS ORDERED: ASPI-1169 PO (12:04)
[2024-08-21] MEDS ORDERED: MAGNESIUM HYDROXIDE 30 ML UDC PO PRN (12:30)
[2024-08-21] MEDS ORDERED: MAG HYDROX/AL HYDROX/SIMETH 30 ML UDC PO PRN (12:30)
[2024-08-21] MEDS ORDERED: ONDANSETRON HCL/PF 4 MG/2 ML VIAL IVP PRN (12:30)
[2024-08-21] MEDS ORDERED: CLONIDINE HCL 0.1 MG TABLET PO PRN (12:30)
[2024-08-21] MEDS ORDERED: Z GUARD REMEDY 4 OZ OINT TP PRN (12:30)
[2024-08-21] MEDS ORDERED: LIDOCAINE HCL/MPF 1% 30 ML VIAL IJ ONE (13:50)
[2024-08-21] MEDS ORDERED: HEPARIN SODIUM, PORCINE 1,000 UNIT/ML VIAL ONE (13:50)
[2024-08-21] MEDS: MORPHINE SULFATE INJ 2 MG/ML DISP.SYRIN IV PRN (15:20)
[2024-08-21 16:41] VITALS: BP 132/56; TEMP 99.1; O2SAT 94
[2024-08-21 20:00] VITALS: BP 131/53; TEMP 97.3; O2SAT 96
[2024-08-22] VITALS: BP 129/51; TEMP 98.2; O2SAT 96
[2024-08-22] MEDS: ANCEF 1 GM/50 ML D5W IV SCH
[2024-08-22] MEDS ORDERED: CEFAZOLIN 2 GM in IV D5W 100 ML IV SCH (01:00)
[2024-08-22 04:00] VITALS: BP 123/54; TEMP 98.8; O2SAT 96
[2024-08-22 06:47] LABS: CALCIUM, SERUM 7.8 mg/dL (8.5-10.1); CREATININE 5.4 mg/dL (0.6-1.3); MAGNESIUM 2.3 mg/dL (1.8-2.4); PHOSPHORUS 5.3 mg/dL (2.5-4.9); POTASSIUM 4.5 mmol/L (3.5-5.1)
[2024-08-22 07:04] LABS: BASOPHILS % (AUTO) 0.2 % (0.0-2.0); EOSINOPHILS # (AUTO) 0.3 K/uL (0.0-0.7); EOSINOPHILS % (AUTO) 1.7 % (0.0-6.0); HEMATOCRIT 28 % (33-45); HEMOGLOBIN 9.2 g/dL (11.5-14.8); LYMPHOCYTES # (AUTO) 5.6 K/uL (0.8-4.8); MEAN CORPUSCULAR HEMOGLOBIN 31 PG (26.0-33.0); MEAN CORPUSCULAR HGB CONC 34 g/dl (31.0-36.0); MEAN CORPUSCULAR VOLUME 92 fL (82-100); MONOCYTES # (AUTO) 1.1 K/uL (0.1-1.30); MONOCYTES % (AUTO) 6.5 % (2.0-12.0); NEUTROPHILS % (AUTO) 58.6 % (43.0-81.0); PLATELET COUNT (AUTO) 168 K/uL (150-450); RED CELL DISTRIBUTION WIDTH 15.9 % (11.5-15.0); WHITE BLOOD COUNT (AUTO) 17.1 K/uL (4.3-11.0)
[2024-08-22] MEDS: CLOPIDOGREL BISULFATE 75 MG TABLET PO SCH (08:32)
[2024-08-22] MEDS: ACETAMINOPHEN 325 MG TABLET PO PRN (08:33)
[2024-08-22] MEDS: ASPIRIN 81 MG TAB.CHEW PO SCH (08:33)
[2024-08-22] MEDS: LEVOTHYROXINE SODIUM 125 MCG TABLET PO SCH (08:33)
[2024-08-22] MEDS: AMLODIPINE BESYLATE 10 MG TABLET PO SCH (08:33)
[2024-08-22] MEDS: LOSARTAN POTASSIUM 25 MG TABLET PO SCH (08:34)
[2024-08-22 09:09] VITALS: BP 126/62; TEMP 99.1; O2SAT 95
[2024-08-22 12:54] VITALS: BP 122/59; TEMP 97.9; O2SAT 99
[2024-08-22] MEDS ORDERED: SEVELAMER CARBONATE 800 MG TABLET PO SCH (13:00)
== END 2024-08-22 13:00 | disposition home or self-care (01) | DRG 314 ==
LOC: ER 10:28 → TELE 12:12
PROVIDERS: ADMIT Internal Medicine; ATTEND Internal Medicine
PROC: 0JHL3XZ Insertion of Tunneled Vascular Access Device into Right Upper Leg Subcutaneous Tissue and Fascia, Percutaneous Approach (ICD-10-PCS; 2024-08-21)
PROC: 06HM33Z Insertion of Infusion Device into Right Femoral Vein, Percutaneous Approach (ICD-10-PCS; 2024-08-21)
PROC: B51BYZA Fluoroscopy of Right Lower Extremity Veins using Other Contrast, Guidance (ICD-10-PCS; 2024-08-21)
PROC: 06PYX3Z Removal of Infusion Device from Lower Vein, External Approach (ICD-10-PCS; 2024-08-21)
PROC: 5A1D70Z Performance of Urinary Filtration, Intermittent, Less than 6 Hours Per Day (ICD-10-PCS; principal; 2024-08-21 16:00)
DX: T82.868A Thrombosis due to vascular prosthetic devices, implants and grafts, initial encounter (principal); N18.6 End stage renal disease; I12.0 Hypertensive chronic kidney disease with stage 5 chronic kidney disease or end stage renal disease; E87.1 Hypo-osmolality and hyponatremia; Y84.1 Kidney dialysis as the cause of abnormal reaction of the patient, or of later complication, without mention of misadventure at the time of the procedure; E03.9 Hypothyroidism, unspecified; D64.9 Anemia, unspecified; E66.9 Obesity, unspecified; E87.70 Fluid overload, unspecified; Z99.2 Dependence on renal dialysis; Y83.2 Surgical operation with anastomosis, bypass or graft as the cause of abnormal reaction of the patient, or of later complication, without mention of misadventure at the time of the procedure; M89.8X9 Other specified disorders of bone, unspecified site; Z85.6 Personal history of leukemia; E11.22 Type 2 diabetes mellitus with diabetic chronic kidney disease; Y92.009 Unspecified place in unspecified non-institutional (private) residence as the place of occurrence of the external cause; I87.8 Other specified disorders of veins
CPT/HCPCS: 36415; 71045-TC; 80048-TC; 83735-TC; 84100-TC; 85025-TC; 85730-TC; 86850-TC; 97116-TC; 97530-TC; A4223; G0378; J0690; J1644; J2270; J2704; J3490; J7030; J7040; J7060